=== PATIENT | female | born 1965 | race Caucasian/White ===

== ENCOUNTER 2018-05-20 03:20 | Emergency (ER) | payer MEDICAID, OTHER ==
[2018-05-20 04:11] LABS: ADD MAN DIFF? NO
[2018-05-20 04:13] LABS: WHITE BLOOD COUNT 11.7 10^3/ul (4.8-10.8)
[2018-05-20 04:13] LABS: BASOPHIL # 0.1 10^3/ul (0.0-0.1); BASOPHILS % 0.4 % (0.0-2.0); EOSINOPHILS # 0.2 10^3/ul (0.0-0.5); EOSINOPHILS % 1.6 % (0.0-7.0); HEMATOCRIT 39.4 % (37.0-47.0); HEMOGLOBIN 12.9 g/dl (12.0-16.0); LYMPHOCYTES # 2.7 10^3/ul (0.8-2.9); LYMPHOCYTES % 22.9 % (15.0-51.0); MEAN CORPUSCULAR HEMOGLOBIN 28.3 pg (29.0-33.0); MEAN CORPUSCULAR HGB CONC 32.7 g/dl (32.0-37.0); MEAN CORPUSCULAR VOLUME 86.4 fl (82.0-101.0); MEAN PLATELET VOLUME 9.5 fl (7.4-10.4); MONOCYTE # 0.8 10^3/ul (0.3-0.9); MONOCYTES % 6.9 % (0.0-11.0); NEUTROPHIL # 7.9 10^3/ul (1.6-7.5); NEUTROPHILS % 67.8 % (39.0-77.0); PLATELET COUNT 352 10^3/UL (140-415); RED BLOOD COUNT 4.56 10^6/ul (4.20-5.40)
[2018-05-20] MEDS: SOD CHLORIDE 0.9% 1,000 ML IV (04:13)
[2018-05-20] MEDS: ONDANSETRON 4 MG INJ IV ×2 (04:13→05:05)
[2018-05-20] MEDS: LIDOCAINE/MYLANTA 40 ML BTL PO (04:13)
[2018-05-20] MEDS: morphine 2 MG INJ IV (04:13)
[2018-05-20 04:29] LABS: ALANINE AMINOTRANSFERASE 20 IU/L (13-69); ALBUMIN 4.2 g/dl (3.3-4.9); ALBUMIN/GLOBULIN RATIO 1.27; ALKALINE PHOSPHATASE 128 IU/L (42-121); ANION GAP 12 (8-16); ASPARTATE AMINO TRANSFERASE 27 IU/L (15-46); BILIRUBIN,INDIRECT 0.2 mg/dl (0-1.1); BILIRUBIN,TOTAL 0.2 mg/dl (0.2-1.3); BLOOD UREA NITROGEN 15 mg/dl (7-20); CALCIUM 9.4 mg/dl (8.4-10.2); CARBON DIOXIDE 27 mmol/L (21-31); CHLORIDE 105 mmol/L (97-110); GLUCOSE 130 mg/dl (70-220); LIPASE 195 U/L (23-300); POTASSIUM 4.8 mmol/L (3.5-5.1); SODIUM 139 mmol/L (135-144); TOTAL PROTEIN 7.5 g/dl (6.1-8.1)
[2018-05-20 04:40] LABS: TROPONIN-I < 0.012 ng/ml (0.000-0.120)
[2018-05-20] MEDS ORDERED: METOCLOPRAMIDE 10 MG INJ (04:47)
[2018-05-20] MEDS ORDERED: DIPHENHYDRAMINE 50 MG INJ (04:47)
[2018-05-20] MEDS: KETOROLAC 30 MG INJ IV (04:51)
[2018-05-20] MEDS: FAMOTIDINE 20 MG INJ IV (04:52)
[2018-05-20 05:00] LABS: ADD UMIC YES; UR ASCORBIC ACID NEGATIVE (NEGATIVE); UR BACTERIA FEW /HPF (NONE SEEN); UR BILIRUBIN (Dip) NEGATIVE (NEGATIVE); UR BLOOD (Dip) 2+ mg/dL (NEGATIVE); UR CLARITY CLEAR (CLEAR); UR COLOR STRAW (YELLOW); UR GLUCOSE (Dip) NEGATIVE (NEGATIVE); UR KETONES (Dip) NEGATIVE (NEGATIVE); UR LEUKOCYTE ESTERASE (Dip) TRACE Leu/ul (NEGATIVE); UR NITRITE (Dip) NEGATIVE (NEGATIVE); UR RBC 24 /HPF (0-5); UR SPECIFIC GRAVITY (Dip) 1.013 (1.003-1.030); UR SQUAMOUS EPITHELIAL CELL FEW /HPF (FEW); UR TOTAL PROTEIN (Dip) NEGATIVE (NEGATIVE); UR UROBILINOGEN (Dip) NEGATIVE (NEGATIVE); UR WBC 1 /HPF (0-5)
[2018-05-20] MEDS: METOCLOPRAMIDE 10 MG INJ IV (05:05)
== END 2018-05-20 08:09 | disposition home or self-care (01) ==
LOC: E/R 03:20
DX: N39.0 Urinary tract infection, site not specified (principal); E11.9 Type 2 diabetes mellitus without complications
CPT/HCPCS: 36415; 74176; 80053; 81001; 83690; 84484; 85025; 93005; 96374; 96375; 96376; 99285-25

== ENCOUNTER 2019-03-18 08:12 | Day surgery (SDC) | payer OTHER ==
[~2019-03-18 08:12] MED LIST: BALANCED SALT SOLN 15 ML OPH IRRIG; MITOMYCIN 5 MG INJ RIGHT EYE
[2019-03-18] MEDS ORDERED: PROPOFOL 20 ML (09:28)
[2019-03-18] MEDS ORDERED: FENTAnyl 50 MCG/ML VIAL (09:28)
[2019-03-18] MEDS: TOBRAMYCIN/DEXAMETH 3.5 GM OPH OINT (10:45)
[2019-03-18] MEDS: LIDOCAINE 1%/EPI 30 ML INJ (10:45)
[2019-03-18] MEDS: TETRACAINE 0.5% 4 ML OPH (10:45)
[2019-03-18] MEDS: FENTAnyl 50 MCG/ML VIAL IV (11:22)
[2019-03-18] MEDS ORDERED: LABETALOL HCL 20MG INJ IV (11:30)
[2019-03-18] MEDS ORDERED: ONDANSETRON 4 MG INJ IV (11:30)
[2019-03-18] MEDS ORDERED: FENTAnyl 50 MCG/ML VIAL IV ×2 (11:30)
[2019-03-18] MEDS ORDERED: OXYCODONE/ACETAMINOPHEN (5/325) TAB PO ×2 (11:30)
== END 2019-03-18 12:45 | disposition home or self-care (01) ==
LOC: SDS 08:12
DX: H11.002 Unspecified pterygium of left eye (principal)
CPT/HCPCS: 65420; 84703